=== PATIENT | female | born 1980 | race Two or more races ===

== ENCOUNTER 2024-08-29 17:44 | Emergency (ER) | payer OTHER ==
[~2024-08-29] VITALS: Ht 177.8 cm; Wt 106.2 kg
[2024-08-29 18:17] VITALS: BP 138/89; PULSE 93; RESP 16; TEMP 98.2; O2SAT 97
[2024-08-29] MEDS: IBUPROFEN 400 MG TAB PO ONE (18:31)
--- NOTE | 2024-08-29 18:46 | ED.PDOC ---
Marija. trauma (HPI) HPI Comments 4-year-old female presents to the ED status post work injury chief complaint of lower back pain. States she started having back pain x 3 hours after moving a crate of oranges. There was 3 boxes of are just stacked she slipped over 1 box so when it be too heavy she reached up and grabbed the to boxes and then she states her back gave out sudden onset of low back pain. Describes the pain as sharp shooting across bilateral lower back 8/10 on pain scale when it happened she notes pain has improved significantly she states she took Tylenol right away and rates pain 4/10 at this time. Denies numbness, weakness, loss of bowel or bladder control, saddle anesthesia or any other known injury. Chief Complaint: Back Pain Time Seen by MD: 17:48 Primary Care Provider: unknown Reviewed notes: Nurses Notes, Medications, Allergies Allergies: Coded Allergies: NO KNOWN ALLERGIES (Unverified , 08/29/24) Home Meds Active Scripts Ibuprofen Micronized (Ibuprofen) 800 Mg Tab, 800 MG PO TID PRN for 5 Days, #15 TAB Prov:MAHENDRA SEVILLA 08/29/24 Tizanidine Hydrochloride (Tizanidine Hcl) 4 Mg Tab, 4 MG PO BID PRN for 4 Days, #8 TAB Prov:MAHENDRA SEVILLA 08/29/24 Information Source: Patient Mode of Arrival: Ambulatory Past Medical History PAST MEDICAL HISTORY: Denies Surgical History: Denies all surgeries AUTOMOTIVE ELECTRICIAN History: No Pertinent AUTOMOTIVE ELECTRICIAN History Family History Family History: Unknown Social History Smoker: Non-Smoker Alcohol: Denies ETOH Use Drugs: Denies Drug Use Constitutional: denies: chills, diaphoresis, fatigue, fever, malaise, sweats, weakness, others EENTM: denies: blurred vision, double vision, ear bleeding, ear discharge, ear drainage, ear pain, ear ringing, eye pain, eye redness, hearing loss, mouth pain, mouth swelling, nasal discharge, nose bleeding, nose congestion, nose pain , photophobia, tearing, throat pain, throat swelling, voice changes, others Respiratory: denies: cough, hemoptysis, orthopnea, SOB at rest, shortness of breath, SOB with excertion, stridor, wheezing, others Cardiovascular: denies: chest pain, dizzy spells, diaphoresis, Dyspnea on exertion, edema, irregular heart beat, left arm pain, lightheadedness, palpitations, PND, syncope, others Gastrointestinal: denies: abdomen distended, abdominal pain, blood streaked bowels, constipated, diarrhea, dysphagia, difficulty swallowing, hematemesis, melena, nausea, poor appetite, poor fluid intake, rectal bleeding, rectal pain, vomiting, others Genitourinary: denies: abnormal vagina bleeding, burning, dyspareunia, dysuria, flank pain, frequency, hematuria, incontinence, pain, , vagina discharge, urgency, others Neurological: denies: dizziness, fainting, headache, left sided numbness, left sided weakness, numbness, paresthesia, pre-existing deficit, right sided numbness, right sided weakness, seizure, speech problems, tingling, tremors, weakness, others Musculoskeletal: reports: back pain; denies: gout, joint pain, joint swelling, muscle pain, muscle stiffness, neck pain, others Integumetry: denies: bruises, change in color, change in hair/nails, dryness, laceration, lesions, lumps, rash, wounds, others Allergic/Immunocompromised: denies: Difficulty Healing, Frequent Infections, Hives, Itching, others Hematologic/Lymphatic: denies: anemia, blood clots, easy bleeding, easy bruising, swollen glands, others Endocrine: denies: excessive hunger, excessive sweating, excessive thirst, excessive urination, flushing, intolerance to cold, intolerance to heat, unexplained weight gain, unexplained weight loss, others Psychiatric: denies: anxiety, bipolar disorder, depression, hopeless, panic disorder, schizophrenia, sleepless, suicidal, others Physical Exam General Appearance: No Apparent Distress, Normal HEENT: Pharynx Normal Neck: Full Range of Motion, Non-Tender Respiratory: Lungs Clear, No Respiratory Distress, Normal Breath Sounds Cardiovascular: No Murmur, Normal Peripheral Pulses, Regular Rate/Rhythm Breast Exam: Deferred Gastrointestinal: No Organomegaly, Non Tender, No Pulsatile Mass, Normal Bowel Sounds, Soft Genitalia: Deferred Pelvic: Deferred Rectal: Deferred Extremities: No calf tenderness, Normal capillary refill, Normal inspection, Normal range of motion, Non-tender, No pedal edema Musculoskeletal : Location: Bilateral Extremity Location: Back (Tenderness on palpation L1 through L5 bilateral paraspinal muscles and across lower back musculature. No noted crepitus, or step-offs along lumbar spine without any noticeable external physical trauma. Strength sensory motion intact negative straight leg raise bilateral positive pedal pulses) Apperance: Normal Neurologic: Alert, rip/mould operator II-XII nml as Tested, No Motor Deficits, Normal Affect, Normal Mood, No Sensory Deficits Cerebellar Function: Normal Reflexes: Normal Skin: Dry, Normal Color, Warm Lymphatic: No Adenopathy Was a procedure done? Was a procedure done?: No Differential Diagnosis Multiple Trauma: Fractures, Spine Injury, Contusion X-Ray, Labs, Meds, VS Vital Signs Date Time Temp Pulse Resp B/P (MAP) Pulse Ox O2 Delivery O2 Flow Rate FiO2 08/29/24 18:17 98.2 93 16 138/89 (105) 97 98.2 08/29/24 18:17 93 16 97 Room Air 08/29/24 17:55 98.2 93 16 138/89 (105) 97 98.2 X-Ray, Labs, Meds, VS Comment Lumbar x-ray shows no acute fractures, osseous lesions or subluxations noted curvature patient is aware of findings recommend following with her PCP symptoms persist consider MRI outpatient. Script a muscle relaxer and anti- inflammatories. Medications as prescribed side effects discussed ER return precautions given patient indicates understanding agrees with discharge plan of care Time of 1ST Reevaluation: 18:46 Reevaluation 1ST: Improved Time of 2ND Reevaluation: 19:09 Reevaluation 2ND: Improved Patient Education/Counseling: Diagnosis, Treatment, Prognosis, Need For Follow Up Family Education/Counseling: No Family Present Departure 1 Departure Time of Disposition: 19:30 Impression: Primary Impression: Lumbar sprain Qualified Codes: S33.5XXA - Sprain of ligaments of lumbar spine, initial encounter Disposition: HOME / SELF CARE / HOMELESS Condition: Stable e-Prescriptions Ibuprofen Micronized (Ibuprofen) 800 Mg Tab 800 MG PO TID PRN for 5 Days, #15 TAB Prov: MAHENDRA SEVILLA 08/29/24 Tizanidine Hydrochloride (Tizanidine Hcl) 4 Mg Tab 4 MG PO BID PRN for 4 Days, #8 TAB Prov: MAHENDRA SEVILLA 08/29/24 Discharged With: Self Critical Care Note Critical Care Time?: No Stability Stability form required: MAHENDRA Horton Aug 29, 2024 18:46
--- NOTE | 2024-08-29 19:07 | DVH ---
EXAM: XY LUMBAR SPINE 3 VIEW HISTORY: Twisting injury/pain COMPARISON: None TECHNIQUE: 4 views of the lumbosacral spine. Findings: Patient has a IUD in expected position in the mid pelvis. There is a increased lordotic curvature lordosis is 81.5 degrees normals 40-60 degrees. Vertebral bod y heights are well preserved IMPRESSION: 1. Increased lordotic curvature otherwise unremarkable study. If more imaging is required I would re commend MRI exam
[2024-08-29] MEDS ORDERED: IBUP-1455 PO (19:10)
[2024-08-29] MEDS ORDERED: TIZA-142 PO (19:10)
== END 2024-08-29 19:38 | disposition home or self-care (01) ==
LOC: ER 17:54
DX: S33.5XXA Sprain of ligaments of lumbar spine, initial encounter (principal); W01.0XXA Fall on same level from slipping, tripping and stumbling without subsequent striking against object, initial encounter; Y93.89 Activity, other specified; Y92.89 Other specified places as the place of occurrence of the external cause; Y99.8 Other external cause status
CPT/HCPCS: 72100